=== PATIENT | male | born 1985 | race Caucasian/White ===

== ENCOUNTER 2024-01-19 09:33 | Emergency (ER) | payer OTHER ==
[~2024-01-19] VITALS: Ht 172.7 cm; Wt 81.6 kg
[2024-01-19 09:45] VITALS: BP 110/70; PULSE 83; RESP 16; TEMP 96.8; O2SAT 97
[2024-01-19] MEDS ORDERED: NAPR-1704 PO (11:39)
[2024-01-19 11:49] VITALS: BP 110/70; PULSE 83; RESP 16; TEMP 96.8; O2SAT 97
== END 2024-01-19 11:49 | disposition home or self-care (01) ==
LOC: MED 09:33
DX: M25.462 Effusion, left knee (principal); Z90.49 Acquired absence of other specified parts of digestive tract; Z79.1 Long term (current) use of non-steroidal anti-inflammatories (NSAID)
CPT/HCPCS: 73562; 99283